=== PATIENT | male | born 1990 | race Caucasian/White ===

== ENCOUNTER 2019-09-30 12:29 | Emergency (ER) | payer OTHER ==
[~2019-09-30] VITALS: Ht 177.8 cm; Wt 99.8 kg
[2019-09-30 15:01] VITALS: BP 115/78
== END 2019-09-30 14:18 | disposition home or self-care (01) ==
LOC: ER 12:29
DX: S61.012A Laceration without foreign body of left thumb without damage to nail, initial encounter (principal); W25.XXXA Contact with sharp glass, initial encounter; Y93.89 Activity, other specified; Y92.89 Other specified places as the place of occurrence of the external cause; Y99.8 Other external cause status

== ENCOUNTER 2020-05-23 08:34 | Emergency (ER) | payer BC ==
[~2020-05-23] VITALS: Ht 180.3 cm; Wt 99.8 kg
[2020-05-23 09:03] LABS: URINE BILIRUBIN NEGATIVE (Negative); URINE BLOOD NEGATIVE (Negative); URINE CLARITY CLEAR; URINE COLOR YELLOW; URINE GLUCOSE-RANDOM* NEGATIVE (Negative); URINE KETONES NEGATIVE (Negative); URINE LEUKOCYTES-REFLEX NEGATIVE (Negative); URINE NITRITE-REFLEX NEGATIVE (Negative); URINE PROTEIN (DIPSTICK) NEGATIVE (Negative); URINE SPECIFIC GRAVITY 1.025 (1.005-1.035); URINE UROBILINOGEN 0.2 E.U./dl (0.2-1.0)
[2020-05-23 09:05] LABS: ABSOLUTE NEUTROPHILS 9.1 thou/uL (1.4-8.2); BASOPHILS 0.5 % (0.0-2.0); HEMATOCRIT 45.8 % (42.0-52.0); HEMOGLOBIN 15.8 gm/dL (14.0-18.0); LYMPHOCYTES 14.2 % (24.0-44.0); MCH 31.8 pg (26.0-34.0); MCHC 34.5 g/dL (28.0-37.0); MCV 92.1 fL (80.0-100.0); MONOCYTES 6.2 % (1.0-8.0); PLATELET COUNT 228 thou/uL (150-400); POLYS 78.1 % (36.0-66.0); RBC 4.97 mil/uL (4.50-6.00); WBC 11.6 thou/uL (4.0-11.0)
[2020-05-23 11:11] LABS: CALCIUM 9.3 mg/dL (8.5-10.1); CREATININE 0.9 mg/dL (0.7-1.3)
[2020-05-23 11:12] LABS: POTASSIUM 4.6 mmol/L (3.5-5.1)
[2020-05-23 11:22] LABS: TOTAL BILIRUBIN 0.7 mg/dL (0.2-1.0)
[2020-05-23 11:23] LABS: ALBUMIN 3.8 g/dL (3.4-5.0); TOTAL PROTEIN 7.8 g/dL (6.4-8.2)
[2020-05-23] MEDS ORDERED: ZOFRAN ODT4 MG PO (13:06)
[2020-05-23] MEDS ORDERED: HYDROCODON-ACE1 EAC7 PO (13:06)
[2020-05-23 13:21] VITALS: BP 112/54
== END 2020-05-23 13:22 | disposition home or self-care (01) ==
LOC: ER 08:34
PROVIDERS: Emergency Medicine
DX: K85.90 Acute pancreatitis without necrosis or infection, unspecified (principal); R10.11 Right upper quadrant pain; R11.2 Nausea with vomiting, unspecified